=== PATIENT | male | born 1950 | race Two or more races ===

== ENCOUNTER → 2020-02-12 | Emergency (ER) | payer OTHER ==
[~2020-02-12] VITALS: Ht 162.6 cm; Wt 83.5 kg
[~2020-02-12] MED LIST: HYZAAR 50-12.51 EACH PO; JANUVIA50 MG PO
== END | disposition left against medical advice (07) ==
LOC: ER 14:21
DX: Z53.20 Procedure and treatment not carried out because of patient's decision for unspecified reasons (principal)